=== PATIENT | female | born 2000 | race Caucasian/White ===

== ENCOUNTER 2022-05-20 10:40 | Emergency (ER) | payer OTHER ==
[~2022-05-20] VITALS: Ht 160 cm; Wt 75.0 kg
[2022-05-20] MEDS ORDERED: ACETAMINOPHEN 325MG TABLET PO NR (11:15)
[2022-05-20] MEDS ORDERED: DEXAMETHASONE 1 MG/ML ORAL SYR PO ONE (11:45)
[2022-05-20] MEDS ORDERED: PENICILLIN V POTASSIUM 250MG TABLET PO SCH (11:45)
[2022-05-20] MEDS ORDERED: DEXAMETHASONE 4MG TABLET PO SCH (12:00)
[2022-05-20] MEDS ORDERED: PENI500T MT (12:21)
[2022-05-20 12:34] VITALS: BP 125/87
== END 2022-05-20 12:42 | disposition home or self-care (01) ==
LOC: ER 10:40
DX: J03.90 Acute tonsillitis, unspecified (principal); F32.A Depression, unspecified; F41.9 Anxiety disorder, unspecified; Q79.60 Ehlers-Danlos syndrome, unspecified; F50.81 Binge eating disorder; Z68.29 Body mass index [BMI] 29.0-29.9, adult
CPT/HCPCS: 87070; 87077; 87430; 99283; J8540